=== PATIENT | male | born 1960 | race Hispanic/Latino ===

== ENCOUNTER 2024-02-20 10:00 | Observation (INO) | payer MEDICARE ==
[2024-02-20 10:26] LABS: Absolute Basophils 0.1 K/uL (0-0.5); Absolute Eosinophils 0.2 K/uL (0-0.5); Absolute Lymphocytes (CBC) 2.1 K/uL (0.7-4.9); Absolute Monocytes 0.7 K/uL (0.1-1.3); Absolute Neutrophil 7.5 K/uL (1.8-8.0); Basophils % 0.6 % (0-1.3); Eosinophils % 2.2 % (0-4.4); Hematocrit 48.9 % (39.6-49.0); Hemoglobin 16.3 g/dL (13.6-17.9); Lymphocytes % 19.5 % (15.3-44.8); MCH 28.8 pg (27.0-35.0); MCHC 33.4 g/dL (32.0-36.0); MCV 86.3 fL (80-100); MPV 8.6 fL (7.6-11.3); Monocytes % 7.1 % (3.3-12.3); Neutrophils % 70.6 % (41.7-73.7); Platelets 258 thou/uL (152-406); RBC Red Blood Cell Count 5.67 M/uL (4.33-5.43); Red Cell Distribution Width 15.5 % (12.1-15.2)
[2024-02-20 10:30] LABS: PT Prothrombin Time 12.1 SECONDS (9.4-12.5); Protime INR 1.15
--- NOTE | 2024-02-20 10:42 | RAD REPORT ---
Procedure: Chest Single View HISTORY: Chest pain COMPARISON: none FINDINGS: Mild bilateral pulmonary opacities appear chronic. No significant pleural effusion noted. The heart is mildly enlarged IMPRESSION: No acute abnormality is displayed.
[2024-02-20 10:44] LABS: ALT/SGPT 19 U/L (16-61); Albumin 2.9 g/dL (3.4-5.0); Albumin/Globulin Ratio 0.5 (1.1-1.8); Alkaline Phosphatase 167 U/L (45-117); Anion Gap 7.9 mEq/L (5.0-15.0); BUN Blood Urea Nitrogen 7 mg/dL (7-18); Bicarbonate 26 mEq/L (21-32); Bilirubin Total 0.3 mg/dL (0.2-1.0); Globulin 5.8 g/dL (2.3-3.5); Glomerular Filtration Rate 70 ml/min (=/>90); Glucose Level 393 mg/dL (74-106); Magnesium 2.3 mg/dL (1.6-2.4); NT PRO-BNP 196 pg/mL (<125); Potassium 3.9 mEq/L (3.5-5.1); Protein, Total 8.7 g/dL (6.4-8.2); Sodium Level 131 mEq/L (136-145)
[2024-02-20 10:45] LABS: AST/SGOT < 10 U/L (15-37); Bilirubin Direct < 0.2 mg/dL (0-0.2); Bilirubin Indirect, Calculated 0.1 mg/dL (0.2-0.8)
--- NOTE | 2024-02-20 10:51 | ER ---
Nurse's Notes [facility] Name: Hernandez Grissom Age: 63 yrs Sex: Male : 1960 Arrival Date: 02/20/2024 Time: 10:00 Bed 4 Private MD: Diagnosis: Chest pain, unspecified;Shortness of breath;Hyperglycemia, unspecified;Essential (primary) hypertension Presentation: 02/19 10:13 Chief complaint: Patient states: has been SOB all week, had an episode of dizziness and iw chest pain earlier in the week. Coronavirus screen: At this time, the client does not indicate any symptoms associated with coronavirus-19. Ebola Screen: No symptoms or risks identified at this time. Initial Sepsis Screen: Does the patient meet any 2 criteria? No. Patient's initial sepsis screen is negative. Does the patient have a suspected source of infection? No. Patient's initial sepsis screen is negative. Risk Assessment: Do you want to hurt yourself or someone else? Patient reports no desire to harm self or others. 10:13 Method Of Arrival: Wheelchair iw 10:13 Acuity: ANABELLA 3 iw 10:17 Onset of symptoms was February 20, 2024. kc6 Historical: - Allergies: 10:17 No Known Allergies; kc6 - PMHx: 10:17 Hypertensive disorder; kc6 - PSHx: 10:17 right knee; kc6 - Immunization history:: Adult Immunizations up to date. - Infectious Disease History:: Denies. - Social history:: Smoking status: Patient reports the use of cigarette tobacco products, denies chronic smoking, but will smoke occasionally. Screenin:14 [facility] ED Fall Risk Assessment (Adult) History of falling in the last 3 months, kc6 including since admission No falls in past 3 months (0 pts) Confusion or Disorientation No (0 pts) Intoxicated or Sedated No (0 pts) Impaired Gait No (0 pts) Mobility Assist Device Used No (0 pt) Altered Elimination No (0 pt) Score/Fall Risk Level 0 - 2 = Low Risk Oriented to surroundings, Maintained a safe environment, Educated pt \T\ family on fall prevention, incl call for assistance when getting out of bed. Abuse screen: Denies threats or abuse. Denies injuries from another. Nutritional screening: No deficits noted. Tuberculosis screening: No symptoms or risk factors identified. Assessment: 10:15 General: Appears in no apparent distress. uncomfortable, obese, well groomed, well kc6 developed, Behavior is calm, cooperative, appropriate for age. Pain: Complains of pain in chest. Neuro: Level of Consciousness is awake, alert, obeys commands, Oriented to person, place, time, situation, Appropriate for age Reports dizziness. Cardiovascular: Reports chest pain, Heart tones S1 S2 present Capillary refill < 3 seconds Rhythm is sinus rhythm. Respiratory: Reports shortness of breath at rest on exertion Airway is patent Trachea midline Respiratory effort is even, labored, using tripod position, Respiratory pattern is regular, symmetrical, Breath sounds are clear bilaterally. GI: No signs and/or symptoms were reported involving the gastrointestinal system. : No signs and/or symptoms were reported regarding the genitourinary system. EENT: No signs and/or symptoms were reported regarding the EENT system. Derm: No signs and/or symptoms reported regarding the dermatologic system. Skin is intact, is healthy with good turgor, Skin is pink, warm \T\ dry. Musculoskeletal: No signs and/or symptoms reported regarding the musculoskeletal system. Circulation, motion, and sensation intact. Range of motion: intact in all extremities. 11:15 Reassessment: Patient appears in no apparent distress at this time. No changes from kc6 previously documented assessment. Patient and/or family updated on plan of care and expected duration. Pain level reassessed. Patient is alert, oriented x 3, equal unlabored respirations, skin warm/dry/pink. 12:30 Reassessment: Patient appears in no apparent distress at this time. No changes from kc6 previously documented assessment. Patient and/or family updated on plan of care and expected duration. Pain level reassessed. Patient is alert, oriented x 3, equal unlabored respirations, skin warm/dry/pink. 13:30 Reassessment: Patient appears in no apparent distress at this time. No changes from kc6 previously documented assessment. Patient and/or family updated on plan of care and expected duration. Pain level reassessed. Patient is alert, oriented x 3, equal unlabored respirations, skin warm/dry/pink. Vital Signs: 10:16 BP 163 / 87; Pulse 66; Resp 16 S; Pulse Ox 97% on R/A; Weight 117.03 kg (M); Height 5 kc6 ft. 9 in. (R); 12:30 Pulse Ox 88% on R/A; kc6 12:30 BP 161 / 66; Pulse 59; Resp 16 S; Pulse Ox 95% on 3 lpm NC; kc6 13:40 BP 177 / 72; Pulse 60; Resp 19; Pulse Ox 99% ; ap3 10:16 Body Mass Index 38.10 (117.03 kg, 175.26 cm) kc6 ED Course: 10:03 Patient arrived in ED. ra3 10:03 Drake Kidd DO is Attending Physician. ms3 10:13 Triage completed. iw 10:13 Camila Griggs, RN is Primary Nurse. kc6 10:14 EKG done, by ED staff, reviewed by Drake Kidd DO. Patient maintains SpO2 saturation kc6 greater than 95% on room air. 10:14 Patient has correct armband on for positive identification. Placed in gown. Bed in low kc6 position. Call light in reach. Side rails up X 1. quality assurance monitor final on. Pulse ox on. NIBP on. Door closed. Noise minimized. Lights dimmed. Warm blanket given. Pillow given. 10:16 Arm band placed on. kc6 10:17 Inserted saline lock: 20 gauge in left antecubital area, using aseptic technique. Blood ap3 collected. Flushed with 10 mL NS. 10:17 Client placed on continuous cardiac and pulse oximetry monitoring. NIBP monitoring ap3 applied. 10:34 XRAY Chest (1 view) In Process Unspecified. EDMS 10:50 Tucker Pierce is Hospitalizing Provider. ms3 10:51 Sincere Hernandez MD is Hospitalizing Provider. ms3 13:46 No provider procedures requiring assistance completed. Patient admitted, IV remains in kc6 place. Administered Medications: 11:07 Drug: Insulin Regular Human Sub-Q 10 units Sub-Q once {Co-Signature: dolores (Veena Abdullahi Vickers RN).} Route: Sub-Q; Site: left upper arm; 12:30 Follow up: Response: No adverse reaction kc6 11:07 Drug: Aspirin PO Chewable Tablet 324 mg PO once; 81 mg tablets x 4 Route: PO; kc6 12:30 Follow up: Response: No adverse reaction kc6 Medication: 13:47 VIS not applicable for this client. kc6 Outcome: 10:50 Decision to Hospitalize by Provider. ms3 13:46 Admitted to Med/surg accompanied by tech, via wheelchair, room 210, with chart, kc6 13:46 Condition: good 13:46 Instructed on the need for admit, 13:47 Patient left the ED. kc6 Signatures: Dispatcher [employer] EDJosette Sullivan RN RN iw Alee Curiel RN RN ap3 Drake Kidd, DO ms3 Camila Griggs RN RN kc6 Dorie Medina ra3 Alee Curiel RN3 Corrections: (The following items were deleted from the chart) 10:19 10:16 BP 163 / 87; Pulse 66bpm; Resp 16bpm; Spontaneous; Pulse Ox 97% RA; beverley kc6
--- NOTE | 2024-02-20 10:51 | EDPHYS ---
Physician Documentation [facility] Name: Hernandez Grissom Age: 63 yrs Sex: Male : 1960 Arrival Date: 02/20/2024 Time: 10:00 Bed 4 Private MD: ED Physician Drake Kidd HPI: 02/19 10:51 This 63 yrs old Male presents to ER via Wheelchair with complaints of Chest ms3 Pain, Shortness Of Breath. 10:51 Hernandez Grissom is a 63-year-old male who presents to the Emergency Department with ms3 complaints of chest pain that began last week. He initially called his insurance's nurse line, which resulted in an ambulance being dispatched due to elevated blood pressure readings of 146/80. He did not go to the ER at that time. Subsequently, on Tuesday, he visited his primary care provider, Blayne Morales, who noted an initial blood pressure of over 200 mmHg, which later decreased to 148/87 mmHg after rechecking. Blood tests were conducted, and Mr. Grissom was prescribed Losartan and Metoprolol. He started the medications on Tuesday, but experienced side effects including rapid heart rate, dizzy spells, and a light headache, although the headache has since resolved. Today, he reports ongoing chest pain, rapid heart rate, shortness of breath, and dizzy spells. He rates his current chest pain as a 1 on a scale of 1 to 10. He reports no nausea or vomiting.. Historical: - Allergies: 10:17 No Known Allergies; kc6 - PMHx: 10:17 Hypertensive disorder; kc6 - PSHx: 10:17 right knee; kc6 - Immunization history:: Adult Immunizations up to date. - Infectious Disease History:: Denies. - Social history:: Smoking status: Patient reports the use of cigarette tobacco products, denies chronic smoking, but will smoke occasionally. ROS: 10:51 Constitutional: Negative for fever, and chills. Abdomen/GI: Negative for abdominal ms3 pain, nausea, vomiting, diarrhea, and constipation, MS/Extremity: Negative for injury and deformity, 10:51 Skin: Negative for injury, rash, and discoloration, 10:51 Cardiovascular: Positive for chest pain, 10:51 Respiratory: Positive for shortness of breath, Exam: 10:51 Constitutional: This is a well developed, well nourished patient who is awake, alert, ms3 and in no acute distress. Cardiovascular: Regular rate and rhythm with a normal S1 and S2. No gallops, murmurs, or rubs. Normal PMI, no JVD. No pulse deficits. Respiratory: Lungs have equal breath sounds bilaterally, clear to auscultation and percussion. No rales, rhonchi or wheezes noted. No increased work of breathing, no retractions or nasal flaring. Abdomen/GI: Soft, non-tender, with normal bowel sounds. No distension or tympany. No guarding or rebound. No evidence of tenderness throughout. Skin: Warm, dry with normal turgor. Normal color with no rashes, no lesions, and no evidence of cellulitis. MS/ Extremity: Pulses equal, no cyanosis. Neurovascular intact. Full, normal range of motion. 10:56 ECG was reviewed by the Attending Physician. ms3 Vital Signs: 10:16 BP 163 / 87; Pulse 66; Resp 16 S; Pulse Ox 97% on R/A; Weight 117.03 kg (M); Height 5 kc6 ft. 9 in. (R); 12:30 Pulse Ox 88% on R/A; kc6 12:30 BP 161 / 66; Pulse 59; Resp 16 S; Pulse Ox 95% on 3 lpm NC; kc6 13:40 BP 177 / 72; Pulse 60; Resp 19; Pulse Ox 99% ; ap3 10:16 Body Mass Index 38.10 (117.03 kg, 175.26 cm) kc6 MDM: 10:03 Medical Screening Exam initiated ms3 10:51 Differential diagnosis: abnormal EKG, acute myocardial infarction, coronary artery ms3 disease. HEART Score: History: Slightly Suspicious (0), ECG: Normal (0), Age: Risk Factors: 1 or 2 risk factors (1), [Hypertension] [DM] Troponin: < or = 1 x Normal Limit (0), Total Score = 1. The patient was given aspirin in the Emergency Department. 10:54 Data reviewed: vital signs, nurses notes, lab test result(s), EKG, radiologic studies, ms3 and as a result, I will admit patient. Consideration of Admission/Observation Patient was admitted/placed on observation. Management of patient was discussed with the following: Hospitalist: Dr Hernandez. I considered the following discharge prescriptions or medication management in the emergency department Medications were administered in the Emergency Department. See MAR. Independent interpretation of the following test(s) in the Emergency Department EKG: See my EKG interpretation above. Counseling: I had a detailed discussion with the patient and/or guardian regarding the historical points, exam findings, and any diagnostic results supporting the discharge/admit diagnosis, lab results, radiology results, the need for further work-up and treatment in the hospital. ED course: Discussed troponin level of 12, EKG findings, chest x-ray with patient. Recommended observation with patient and patient understands agrees with plan. Patient is not a known diabetic and glucose is 393 today.. 02/19 10:04 Order name: Basic Metabolic Panel; Complete Time: 10:47 ms3 02/19 10:04 Order name: CBC with Diff; Complete Time: 10:47 ms3 02/19 10:04 Order name: LFT's; Complete Time: 10:47 ms3 02/19 10:04 Order name: Magnesium; Complete Time: 10:47 ms3 02/19 10:04 Order name: NT PRO-BNP; Complete Time: 10:47 ms3 02/19 10:04 Order name: PT-INR; Complete Time: 10:47 ms3 02/19 10:04 Order name: Troponin HS; Complete Time: 10:47 ms3 02/19 12:37 Order name: Basic Metabolic Panel EDMS 02/19 12:37 Order name: Basic Metabolic Panel EDMS 02/19 12:37 Order name: CBC with Automated Diff EDMS 02/19 12:37 Order name: CBC with Automated Diff EDMS 02/19 12:37 Order name: Troponin High Sensitivity EDMS 02/19 12:37 Order name: Troponin High Sensitivity EDMS 02/19 12:37 Order name: Troponin High Sensitivity EDMS 02/19 12:37 Order name: Troponin High Sensitivity EDMS 02/19 12:37 Order name: Lipid Profile EDMS 02/19 12:39 Order name: Hemoglobin A1c EDMS 02/19 12:42 Order name: Urinalysis W/Microscopic EDMS 02/19 10:04 Order name: XRAY Chest (1 view); Complete Time: 10:47 ms3 02/19 12:37 Order name: Echo with Doppler EDMS 02/19 12:37 Order name: CONS Physician Consult EDMS 02/19 10:04 Order name: Cardiac monitoring; Complete Time: 10:14 ms3 02/19 10:04 Order name: EKG - Nurse/Tech; Complete Time: 10:14 ms3 02/19 10:04 Order name: IV Saline Lock; Complete Time: 10:17 ms3 02/19 10:04 Order name: Labs collected and sent; Complete Time: 10:20 ms3 02/19 10:04 Order name: O2 Per Protocol; Complete Time: 10:14 ms3 02/19 10:04 Order name: O2 Sat Monitoring; Complete Time: 10:14 ms3 EC:56 Rate is 68 beats/min. Rhythm is regular. QRS [place] is Normal. SC interval is normal. ms3 Clinical impression: NSR w/ Non-specific ST/T Changes. Interpreted by me. Reviewed by me. Administered Medications: 11:07 Drug: Insulin Regular Human Sub-Q 10 units Sub-Q once {Co-Signature: ap3 (beverley Curiel RN).} Route: Sub-Q; Site: left upper arm; 12:30 Follow up: Response: No adverse reaction [facility] 11:07 Drug: Aspirin PO Chewable Tablet 324 mg PO once; 81 mg tablets x 4 Route: PO; 6 12:30 Follow up: Response: No adverse reaction kc6 Disposition Summary: 02/20/24 10:50 Hospitalization Ordered Notes: Hospitalization Status: Observation ms3 Location: Telemetry/MedSurg (observation) ms3 Condition: Stable ms3 Problem: new ms3 Symptoms: are unchanged ms3 Bed/Room Type: Standard ms3 Provider: Sincere Hernandez(02/20/24 10:51) ms3 Room Assignment: 210(02/20/24 12:49) bd Diagnosis - Chest pain, unspecified ms3 - Shortness of breath ms3 - Hyperglycemia, unspecified ms3 - Essential (primary) hypertension ms3 Forms: - Medication Reconciliation Form ms3 - SBAR form ms3 - Leadership Thank You Letter ms3 Signatures: Dispatcher [employer] EDIL Marta Brito Marcus, DO DO ms3 Camila Griggs RN RN kc6 Alee Curiel RN3 Corrections: (The following items were deleted from the chart) 10:04 10:04 BASIC METABOLIC PANEL+C.LAB.BRZ ordered. EDMS EDMS 10:04 10:04 CBC+H.LAB.BRZ ordered. EDMS EDMS 10:04 10:04 HEPATIC FUNCTION+C.LAB.BRZ ordered. EDMS EDMS 10:04 10:04 MAGNESIUM+C.LAB.BRZ ordered. EDMS EDMS 10:04 10:04 PROBNP+C.LAB.BRZ ordered. EDMS EDMS 10:04 10:04 PROTIME (+INR)+COAG.LAB.BRZ ordered. EDMS EDMS 10:04 10:04 Troponin High Sensitivity+C.LAB.BRZ ordered. EDMS EDMS 10:04 10:04 Chest Single View+RAD.RAD.BRZ ordered. EDMS EDMS 10:51 10:50 Tucker Pierce ms3 ms3 12:49 10:50 ms3 bd
[2024-02-20] MEDS ORDERED: ASPIRIN 81 MG CHEWABLE TABLET ONE (11:02)
[2024-02-20] MEDS ORDERED: INSULIN REGULAR (HUMAN) 100 UNIT/ML ONE (11:03)
[2024-02-20] MEDS ORDERED: ALPRAZOLAM 0.25 MG TABLET PO PRN (12:25)
[2024-02-20] MEDS ORDERED: ACETAMINOPHEN 500 MG TAB PO PRN (12:25)
[2024-02-20] MEDS ORDERED: MORPHINE 4 MG/ML SYR IV PRN (12:25)
--- NOTE | 2024-02-20 16:46 | P.HP ---
Certification for Inpatient Patient admitted to: Observation With expected LOS: <2 Midnights Patient will require the following post-hospital care: None Practitioner: I am a practitioner with admitting privileges, knowledge of patient current condition, hospital course, and medical plan of care. Services: Services provided to patient in accordance with Admission requirements found in Title 42 Section 412.3 of the Code of Federal Regulations Patient History Date of Service: 02/20/24 Reason for admission: Chest pain rule out acute coronary syndrome History of Present Illness: Patient is a 63-year-old gentleman came to the hospital with chest discomfort. Pain was in the epigastric region with no rebound or guarding. Patient also denies any radiation of his chest pain. He stated that it came on suddenly but he is feeling better at this time. Patient with numerous risk factors including morbid obesity, hypertension, diabetes, alcohol abuse, and denies any family history. Patient has a history of tobacco use. Patient was recently seen by his PCP and started on antihypertensives. However, he was not told that he has elevated blood sugars. In the ER his blood sugars are greater than 300. He is has some complaints of dysuria/polyuria, polydipsia, and polyphagia. His troponins in ER were negative. EKG is unremarkable. At this time, patient patient will be admitted to the hospital for further workup. Allergies No Known Allergies Allergy (Unverified 02/20/24 12:41) Home Medications: Losartan Potassium [Cozaar] 50 mg PO DAILY 02/20/24 Metoprolol Tartrate [Lopressor] 25 mg PO DAILY 02/20/24 - Past Medical/Surgical History Has patient received pneumonia vaccine in the past: No -: Hypertension Past Surgical History: Patient denies surgical history - Family History Father Family History: Reviewed- Non-Contributory - Social History Smoking Status: Current every day smoker Alcohol use: Yes CD- Drugs: No Caffeine use: Yes Place of Residence: Home Review of Systems 10-point ROS is otherwise unremarkable Physical Examination - Vital Signs Temperature: 98 F Blood Pressure: 177/72 Pulse: 60 Respirations: 19 Pulse Ox (%): 94 - Physical Exam General: Alert, In no apparent distress, Oriented x3, Obese HEENT: Atraumatic, PERRLA, Mucous membr. moist/pink, EOMI, Sclerae nonicteric Neck: Supple, 2+ carotid pulse no bruit, No LAD, Without JVD or thyroid abnormality Respiratory: Clear to auscultation bilaterally, Normal air movement Cardiovascular: Regular rate/rhythm, Normal S1 S2, No murmurs Gastrointestinal: Normal bowel sounds, Hypoactive, Non-distended, No tenderness Musculoskeletal: No clubbing, No swelling, No tenderness Integumentary: No rashes Neurological: Normal gait, Normal speech, Normal strength at 5/5 x4 extr, Normal tone, Sensation intact, Cranial nerves 3-12 intact, Normal reflexes 2+, Normal affect Lymphatics: No axilla or inguinal lymphadenopathy - Studies Laboratory Data (last 24 hrs) 02/20/24 02/20/24 02/20/24 10:19 10:19 10:19 WBC 10.60 Hgb 16.3 Hct 48.9 Plt Count 258 PT 12.1 INR 1.15 Sodium 131 L Potassium 3.9 BUN 7 Creatinine 1.18 Glucose 393 H Magnesium 2.3 Total Bilirubin 0.3 AST < 10 L ALT 19 Alkaline Phosphatase 167 H Assessment & Plan - Problems (Diagnosis) (1) Chest pain, rule out acute myocardial infarction Current Visit: Yes Status: Acute (2) Morbid obesity Current Visit: Yes Status: Acute (3) Type 2 diabetes mellitus Current Visit: Yes Status: Acute (4) Malignant hypertension Current Visit: Yes Status: Acute - Plan -High-sensitivity troponin -Cardiology consultation -Echocardiogram and stress test -Repeat EKG -Work-up for other etiologies of cardiac chest pain if troponins remain negative -Lipid profile -Patrol Captain regarding modifying risk for cardiac disease - Advance Directives Does patient have a Living Will: No Does patient have a Durable POA for Healthcare: No - Code Status/Comfort Care Code Status Assessed: Yes Code Status: Full Code Critical Care: No Time Spent Managing PTS Care (In Minutes): 45
[2024-02-20] MEDS: ATORVASTATIN 40 MG TAB PO SCH (20:33)
[2024-02-20] MEDS: METOPROLOL TAR 50 MG TAB PO SCH (20:33)
[2024-02-21 06:22] LABS: Anion Gap 8.1 mEq/L (5.0-15.0); Potassium 4.1 mEq/L (3.5-5.1); Troponin High Sensitivity 13.4 pg/mL (<58.9)
[2024-02-21 06:23] LABS: Absolute Basophils 0.1 K/uL (0-0.5); Absolute Eosinophils 0.6 K/uL (0-0.5); Absolute Lymphocytes (CBC) 3.8 K/uL (0.7-4.9); Absolute Monocytes 0.9 K/uL (0.1-1.3); Basophils % 0.6 % (0-1.3); Eosinophils % 3.9 % (0-4.4); Hematocrit 45.5 % (39.6-49.0); Hemoglobin 15.2 g/dL (13.6-17.9); Lymphocytes % 26.5 % (15.3-44.8); MCH 28.8 pg (27.0-35.0); MCHC 33.5 g/dL (32.0-36.0); MPV 8.6 fL (7.6-11.3); Monocytes % 6.5 % (3.3-12.3); Neutrophils % 62.5 % (41.7-73.7); Platelets 272 thou/uL (152-406); RBC Red Blood Cell Count 5.29 M/uL (4.33-5.43); Red Cell Distribution Width 14.8 % (12.1-15.2)
[2024-02-21] MEDS ORDERED: REGADENOSON 0.4 MG/5 ML SYR IV ONE (09:53)
[2024-02-21] MEDS: ASPIRIN EC 81 MG TAB PO SCH (10:38)
[2024-02-21] MEDS: ENOXAPARIN 40 MG/0.4 ML SQ SCH (10:38)
--- NOTE | 2024-02-21 11:11 | RAD REPORT ---
EXAM: Nuclear medicine cardiac perfusion examination with ejection fraction HISTORY: Chest pain CP TECHNIQUE: Rest images: 10.5 mCi technetium 99m sestamibi Stress images: 32.1 mCi of technetium 99m sestamibi COMPARISON: None. FINDINGS: Tomographic images: No fixed or reversible perfusion defects. No finding to suspect hibernating myocardium. Ejection fraction of 56%. EDV: 126 mL ESV: 55 mL LHR: 0.6 TID: 1.1 IMPRESSION: No evidence of stress induced ischemia.
--- NOTE | 2024-02-21 12:04 | TREADPHA ---
DX: CHEST PAIN Date of Study: 02/21/24 Ht: 5' 9 " Wt: 258 lb 0.112 oz Consulting Physician: BRITTANI MEDICATIONS: ASPIRIN, LIPITOR, LOVENOX, LOPRESSOR HISTORY: HYPERTENSION PHYSICIAL EXAMINATION: RESTING B.P.: 144/68 RESTING H.R.: 60 RESTING EKG: PROTOCOL: LEXISCAN EXERCISE TIME: 3:30 B.P. AT PEAK STRESS: 102/58 IMPRESSION: LEXISCAN STRESS TEST PERFORMED. CARDIOLITE INJECTED PER PROTOCOL (SEE NUCLEAR REPORT). NO VENTRICULAR TACHYCARDIA, NO SUPRA VENTRICULAR TACHYCARDIA, NO ARRHYTHMIAS NOTED. PATIENT COMPLAINED OF SHORTNESS OF BREATH DURING PROCEDURE, SUBSIDED POST PROCEDURE. PATIENT COMPLAINED OF CHEST DISCOMFORT OF 2 ON NUMERICAL PAIN SCALE, SUBSIDED POST PROCEDURE.
[2024-02-21] MEDS ORDERED: LOSARTAN POTASSIUM 50 MG TABLET ONE (12:24)
--- NOTE | 2024-02-21 13:33 | P.DS ---
Admission Date: 02/20/24 Discharge Date: 02/21/24 Reason for Admission: Chest pain rule out acute coronary syndrome Consultations: Dr. Yanes clinical trial educator Procedures: Cardiac stress test (negative for any reversible ischemia) Brief History of Present Illness: Patient is a 63-year-old gentleman came to the hospital with chest discomfort. Pain was in the epigastric region with no rebound or guarding. Patient also denies any radiation of his chest pain. He stated that it came on suddenly but he is feeling better at this time. Patient with numerous risk factors including morbid obesity, hypertension, diabetes, alcohol abuse, and denies any family history. Patient has a history of tobacco use. Patient was recently seen by his PCP and started on antihypertensives. However, he was not told that he has elevated blood sugars. In the ER his blood sugars are greater than 300. He has some complaints of dysuria/polyuria, polydipsia, and polyphagia. His troponins in ER were negative. EKG is unremarkable. At this time, patient patient will be admitted to the hospital for further workup. Hospital Course: Mr. Grissom felt well over the course of his hospitalization. He denies any further chest pain. His blood pressure has been controlled. His blood sugar has trended down from 393 to 128. His hemoglobin A1c is 7.3. clinical trial educator was asked to speak with Mr. Grissom. This morning he underwent a cardiac stress test which did not show any areas of reversible ischemia. He should continue his home medications, follow-up with his PCP, and cardiology in 1 to 2 weeks. <Kenya Paniagua - Last Filed: 02/21/24 13:41> Admission Date: 02/20/24 Discharge Date: 02/21/24 Hospital Course: Discharge diagnosis Chest pain, rule out acute myocardial infarction Morbid obesity Type 2 diabetes mellitus Malignant hypertension <candelario lin - Last Filed: 02/23/24 19:32> Disposition: ROUTINE DISCHARGE Discharge Condition: GOOD Vital Signs/Physical Exam: Temp Pulse Resp BP Pulse Ox 97.9 F 55 20 130/62 93 02/21/24 12:00 02/21/24 12:00 02/21/24 12:00 02/21/24 12:00 02/21/24 12:00 General: Alert, In no apparent distress, Oriented x3, Obese HEENT: Atraumatic, Normocephalic Neck: Supple, 2+ carotid pulse no bruit Respiratory: Normal air movement Cardiovascular: Normal pulses, Regular rate/rhythm, Normal S1 S2 Capillary refill: <2 Seconds Gastrointestinal: Soft and benign Musculoskeletal: No clubbing, No swelling Integumentary: No rashes Neurological: Normal speech, Normal tone, Normal affect Lymphatics: No axilla or inguinal lymphadenopathy External genitalia: Deferred Rectal: Deferred Laboratory Data at Discharge: WBC 14.30 thou/uL (4.3-10.9) H 02/21/24 04:24 Hgb 15.2 g/dL (13.6-17.9) 02/21/24 04:24 Hct 45.5 % (39.6-49.0) 02/21/24 04:24 Plt Count 272 thou/uL (152-406) 02/21/24 04:24 PT 12.1 SECONDS (9.4-12.5) 02/20/24 10:19 INR 1.15 02/20/24 10:19 Sodium 135 mEq/L (136-145) L D 02/21/24 04:24 Potassium 4.1 mEq/L (3.5-5.1) 02/21/24 04:24 BUN 10 mg/dL (7-18) 02/21/24 04:24 Creatinine 0.96 mg/dL (0.70-1.30) 02/21/24 04:24 Glucose 128 mg/dL (74-106) H 02/21/24 04:24 Magnesium 2.3 mg/dL (1.6-2.4) 02/20/24 10:19 Total Bilirubin 0.3 mg/dL (0.2-1.0) 02/20/24 10:19 AST < 10 U/L (15-37) L 02/20/24 10:19 ALT 19 U/L (16-61) 02/20/24 10:19 Alkaline Phosphatase 167 U/L (45-117) H 02/20/24 10:19 Triglycerides 153 mg/dL (<150) H 02/21/24 04:24 Cholesterol 143 mg/dL (<200) 02/21/24 04:24 HDL Cholesterol 37 mg/dL (40-60) L 02/21/24 04:24 Cholesterol/HDL Ratio 3.86 02/21/24 04:24 <Paniagua,Kenya Artemio - Last Filed: 02/21/24 13:41> Vital Signs/Physical Exam: Temp Pulse Resp BP Pulse Ox 97.9 F 55 20 130/62 93 02/21/24 12:00 02/21/24 12:00 02/21/24 12:00 02/21/24 12:00 02/21/24 12:00 Laboratory Data at Discharge: WBC 14.30 thou/uL (4.3-10.9) H 02/21/24 04:24 Hgb 15.2 g/dL (13.6-17.9) 02/21/24 04:24 Hct 45.5 % (39.6-49.0) 02/21/24 04:24 Plt Count 272 thou/uL (152-406) 02/21/24 04:24 PT 12.1 SECONDS (9.4-12.5) 02/20/24 10:19 INR 1.15 02/20/24 10:19 Sodium 135 mEq/L (136-145) L D 02/21/24 04:24 Potassium 4.1 mEq/L (3.5-5.1) 02/21/24 04:24 BUN 10 mg/dL (7-18) 02/21/24 04:24 Creatinine 0.96 mg/dL (0.70-1.30) 02/21/24 04:24 Glucose 128 mg/dL (74-106) H 02/21/24 04:24 Magnesium 2.3 mg/dL (1.6-2.4) 02/20/24 10:19 Total Bilirubin 0.3 mg/dL (0.2-1.0) 02/20/24 10:19 AST < 10 U/L (15-37) L 02/20/24 10:19 ALT 19 U/L (16-61) 02/20/24 10:19 Alkaline Phosphatase 167 U/L (45-117) H 02/20/24 10:19 Triglycerides 153 mg/dL (<150) H 02/21/24 04:24 Cholesterol 143 mg/dL (<200) 02/21/24 04:24 HDL Cholesterol 37 mg/dL (40-60) L 02/21/24 04:24 Cholesterol/HDL Ratio 3.86 02/21/24 04:24 <candelario lin - Last Filed: 02/23/24 19:32> Diet: ADA Activity: Ad yoel <Kenya Paniagua - Last Filed: 02/21/24 13:41> <candelario lin - Last Filed: 02/23/24 19:32> Home Medications: Losartan Potassium [Cozaar] 50 mg PO DAILY 02/20/24 Metoprolol Tartrate [Lopressor] 25 mg PO DAILY 02/20/24 Physician Discharge Instructions: Brief History of Present Illness: Patient is a 63-year-old gentleman came to the hospital with chest discomfort. Pain was in the epigastric region with no rebound or guarding. Patient also denies any radiation of his chest pain. He stated that it came on suddenly but he is feeling better at this time. Patient with numerous risk factors including morbid obesity, hypertension, diabetes, alcohol abuse, and denies any family history. Patient has a history of tobacco use. Patient was recently seen by his PCP and started on antihypertensives. However, he was not told that he has elevated blood sugars. In the ER his blood sugars are greater than 300. He has some complaints of dysuria/polyuria, polydipsia, and polyphagia. His troponins in ER were negative. EKG is unremarkable. At this time, patient patient will be admitted to the hospital for further workup. Hospital Course: Mr. Grissom felt well over the course of his hospitalization. He denies any further chest pain. His blood pressure has been controlled. His blood sugar has trended down from 393 to 128. His hemoglobin A1c is 7.3. clinical trial educator was asked to speak with Mr. Grissom. This morning he underwent a cardiac stress test which did not show any areas of reversible ischemia. He should continue his home medications, follow-up with his PCP, and cardiology in 1 to 2 weeks. Followup: James Yanes MD [ACTIVE - CAN ADMIT] - 1-2 Weeks Blayne Morales FNP [Primary Care Provider] - 1-2 Weeks
[2024-02-21] MEDS: LOSARTAN POTASSIUM 50 MG TABLET PO SCH (13:50)
[2024-02-21 16:50] VITALS: BP 130/62; TEMP 97.9; O2SAT 96; BMI 38.0
--- NOTE | 2024-02-22 11:33 | ECHO ---
HEIGHT: 5 ft 9 in WEIGHT: 258 lb 0 oz DATE OF STUDY: 02/21/[address]: Sincere Hernandez MD 2-DIMENSIONAL: YES M.MODE: YES DOPPLER: YES COLOR FLOW: YES TDS: NO PORTABLE: YES DEFINITY: NO BUBBLE STUDY: NO DIAGNOSIS: HYPERTENSIVE EMERGENCY CARDIAC HISTORY: CATHERIZATION: NO SURGERY: NO PROSTHETIC VALVE: NO PACEMAKER: NO MEASUREMENTS (cm) DIASTOLIC (NORMALS) SYSTOLIC (NORMALS) IVSd 1.4 (0.6-1.2) LA Diam 3.0 (1.9-4.0) LVEF 55-60% LVIDd 4.5 (3.5-5.7) LVIDs 3.1 (2.0-3.5) %FS 30% LVPWd 1.4 (0.6-1.2) Ao Diam 3.2 (2.0-3.7) 2 DIMENSIONAL ASSESSMENT: RIGHT ATRIUM: NORMAL LEFT ATRIUM: NORMAL RIGHT VENTRICLE: NORMAL LEFT VENTRICLE: NORMAL TRICUSPID VALVE: TRACE TRICUSPID REGURGITATION MITRAL VALVE: MILD MITRAL ANNULAR CALFICATION, TRACE MITRAL REGURGITATION PULMONIC VALVE: NORMAL AORTIC VALVE: TRACE AORTIC REGURGITATION PERICARDIAL EFFUSION: NONE AORTIC ROOT: NORMAL LEFT VENTRICULAR WALL MOTION: NORMAL. DOPPLER/COLOR FLOW: DIASTOLIC DYSFUNCTION. COMMENTS: 1. NORMAL LEFT VENTRICULAR SYSTOLIC FUNCTION. LEFT VENTRICULAR EJECTION FRACTION 60-65%. NORMAL WALL MOTION. 2. DIASTOLIC DYSFUNCTION. TECHNOLOGIST: REGAN BAKER
--- NOTE | 2024-02-23 12:07 | EKG ---
Test Date: 2024-02-20 Test Time: 10:11:55 Metal Dresser: JOSEPH MEASUREMENT RESULTS: Intervals: Rate: 68 WY: 156 QRSD: 86 QT: 404 QTc: 429 [place]: P: 39 WY: 156 QRS: 26 T: 81 INTERPRETIVE STATEMENTS: Normal sinus rhythm Possible Anterior infarct, age undetermined Abnormal ECG No previous ECG available for comparison Electronically Signed On 02-23-24 12:07:07 BASTER HAND by James Yanes
== END 2024-02-21 15:46 | disposition home or self-care (01) ==
LOC: ER 10:00 → ERHOLD 12:25 → 2ND 13:42
PROVIDERS: ADMIT Hospitalist; ATTEND Internal Medicine
DX: R07.9 Chest pain, unspecified (principal); R10.13 Epigastric pain; F10.10 Alcohol abuse, uncomplicated; E66.01 Morbid (severe) obesity due to excess calories; F17.210 Nicotine dependence, cigarettes, uncomplicated; R30.0 Dysuria; E11.65 Type 2 diabetes mellitus with hyperglycemia; Z68.38 Body mass index [BMI] 38.0-38.9, adult
CPT/HCPCS: 36415; 71045; 78452; 80048; 80061; 80076; 83036; 83735; 83880; 84484; 85025; 85610; 93005; 93017; 93306; 96372; 99285; A9500; G0378; J1650; J2785